=== PATIENT | female | born 2000 | race Caucasian/White ===

== ENCOUNTER 2022-08-21 10:32 | Outpatient (RCR) | payer OTHER, SELFPAY | END 2022-11-19 23:59 | disposition home or self-care (01) | LOC: ANHLAB 10:32 | PROVIDERS: Visit Provider Advanced Practice Midwife | DX: O26.859 Spotting complicating pregnancy, unspecified trimester (principal); Z3A.00 Weeks of gestation of pregnancy not specified | CPT/HCPCS: 36415; 85461; 86850; 86900; 86901 ==

== ENCOUNTER 2022-11-03 09:46 | Observation (INO) | payer OTHER, SELFPAY ==
--- NOTE | 2022-11-03 09:46 | OBADM ---
This patient, Bhavani Head, admitted to the OB room OB Post 116 for observation. Patient/family oriented to hospital policies and general routines including ID bracelet, bed and alarms, visiting hours, pain management, procedures, bathroom and other care routines, personal items, smoking policy, room service/diet, and visiting hours. Patient/Family are encouraged to report perceived risks to care and to ask questions if they do not understand what they are told or what they should do.
[2022-11-03 10:55] VITALS: BMI 30.2
--- NOTE | 2022-11-03 10:55 | PC.NURSE ---
Called Dr. Oneill with pt status. Pt admitted for dizziness, nausea and vomiting. States that she is able to keep water down, but gets dizzy with movement, which causes nausea. Orders received.
[2022-11-03 11:07] VITALS: BP 101/57; PULSE 77
[2022-11-03 11:15] VITALS: BP 100/60; PULSE 85
[2022-11-03 11:39] LABS: Appearance Urine Clear (Clear); Bilirubin Urine Negative (Negative); Blood Urine Negative (Negative); Color Urine Yellow (Yellow); Glucose Urine UA Negative (Negative); Ketones Urine Negative (Negative); Leukocyte Esterase Ur Negative LEU/UL (NEGATIVE); Nitrate Urine Negative (Negative); Protein Urine Negative (Negative); Specific Grav Ur 1.002 (1.001-1.035); Urobilinogen Urine 0.2 mg/dL (<2.0)
[2022-11-03] MEDS: DEXTROSE 5%/0.45% SOD CHL 1,000 ML 999 ML IV CONT (11:39)
[2022-11-03] MEDS: FAMOTIDINE 20 MG/2 ML VIAL IV PUSH (11:40)
[2022-11-03] MEDS: ONDANSETRON INJ 4 MG/2 ML VIAL IV PUSH (11:40)
[2022-11-03 11:41] LABS: Add Urine Microscopic? NO
--- NOTE | 2022-11-03 12:51 | PC.NURSE ---
Called Dr. Oneill. Pt requesting to go home. States that she prefers to not have second bag of fluids. May D/C home.
--- NOTE | 2022-11-10 07:17 | P.PNOB_ITS ---
OB - Triage/Final Diagnosis Visit Information Comments/Additional reasons for admission: I have assessed the risk for this patient, Bhavani Head, and determined that she would benefit from observation care. Evaluation Laboratory results: Laboratory Tests 11/03/22 11:02 Urine Color Yellow Urine Appearance Clear Urine pH 7.0 Ur Specific [place] 1.002 Urine Protein Negative Urine Glucose (UA) Negative Urine Ketones Negative Ur Blood (Man) Negative Urine Nitrate Negative Urine Bilirubin Negative Urine Urobilinogen 0.2 Ur Leukocyte Esterase Negative Final Diagnosis (1) Hyperemesis affecting , antepartum: Code(s): O21.0 - Mild hyperemesis gravidarum Status: Acute
== END 2022-11-03 13:10 | disposition home or self-care (01) ==
PROVIDERS: Admitting Provider Obstetrics & Gynecology; Visit Provider Obstetrics & Gynecology
DX: O21.0 Mild hyperemesis gravidarum (principal); Z3A.19 19 weeks gestation of pregnancy
CPT/HCPCS: 81003; 87086; 96374; 96375; G0378; G0379; J2405

== ENCOUNTER 2022-12-16 17:12 | Emergency (ER) | payer OTHER, SELFPAY ==
[2022-12-16] VITALS (7 sets, daily range): BP systolic 110–121; BP diastolic 78–81; PULSE 89–112; RESP 16–22; TEMP 36.6; O2SAT 98–100
--- NOTE | 2022-12-16 17:13 | ECG_ITS ---
Measurements Intervals [place] Rate: 114 P: 52 [place]: 139 QRS: 21 QRSD: 97 T: 10 QT: 324 QTc: 447 Interpretive Statements SINUS TACHYCARDIA ABNORMAL RHYTHM ECG NO PREVIOUS ECG AVAILABLE FOR COMPARISON Electronically Signed On 12-16-2022 20:36:51 CDT by Liss Howell M.D.
[2022-12-16] MEDS: SODIUM CHLORIDE 0.9% IV 1,000 ML 999 ML IV CONT (19:31)
[2022-12-16 19:34] LABS: Basophils Absolute Auto 0.1 K/mm3 (0.0-0.1); Basophils Percent Auto 0.3 % (0.2-1.2); Eosinophils Absolute Auto 0.1 K/mm3 (0-0.3); Eosinophils Percent Auto 0.3 % (0-4.4); Hematocrit 29.3 % (37.0-47.0); Immature Granulocyte Absolute 0.31 K/mm3 (0.00-0.031); Immature Granulocyte Percent A 1.9 % (0-0.5); Lymphocytes Absolute Auto 1.97 K/mm3 (0.9-3.2); Lymphocytes Percent Auto 12.3 % (18.3-44.2); Mean Corpuscular HGB Conc 34.1 g/dl (32-36); Mean Corpuscular Hemoglobin 29.1 pg (26-34); Mean Corpuscular Volume 85.2 fl (80-100); Monocytes Absolute Auto 1.4 K/mm3 (0.1-0.6); Monocytes Percent Auto 8.8 % (2.6-8.5); Neutrophils Absolute Auto 12.3 K/mm3 (1.3-6.7); Neutrophils Percent Auto 76.4 % (45.5-73.1); Platelet Count Result 287 k/mm3 (150-375); Red Blood Count 3.44 M/mm3 (4.2-5.4); Red Cell Distribution Width 12.8 % (11.5-14.5); White Blood Count 16.1 K/mm3 (4.5-10.0)
[2022-12-16 19:50] LABS: Alanine Aminotransferase 16 U/L (6-35); Albumin Level 3.6 g/dL (3.5-5.1); Alkaline Phosphatase 89 U/L (38-126); Anion Gap 7 mmol/L (8-16); Aspartate Amino Transferase 20 U/L (14-36); Bilirubin,Total 0.3 mg/dL (0.2-1.3); Blood Urea Nitrogen 4 mg/dL (7-17); Calcium 8.4 mg/dL (8.4-10.2); Carbon Dioxide 20 mmol/L (22-30); Chloride 107 mmol/L (98-107); Estimated CRCL calculation 179 ml/min; Estimated Glomerular Filt Rate > 60; Glucose 98 mg/dL (65-110); Magnesium 1.8 mg/dL (1.6-2.3); Potassium 3.2 mmol/L (3.4-5.0); Sodium 134 mmol/L (137-145)
[2022-12-16 20:40] LABS: Appearance Urine Clear (Clear); Bacteria Urine None Seen /hpf; Bilirubin Urine Negative (Negative); Blood Urine Negative (Negative); Color Urine Yellow (Yellow); Glucose Urine UA Negative (Negative); Ketones Urine Negative (Negative); Leukocyte Esterase Ur Trace LEU/UL (Negative); Nitrate Urine Negative (Negative); Non Pathogenic Casts 0-2; Protein Urine Negative (Negative); RBC Urine 0-2 /hpf (0-2); Squamous Epithelial Cell Urine None seen /hpf (Few); WBC Urine 0-5 /hpf; pH Urine 6.5 (5.0-9.0)
[2022-12-16 20:47] LABS: Add Urine Microscopic? YES
--- NOTE | 2022-12-16 20:50 | ED.GENADULT ---
HPI - General Adult General Chief complaint: Arrhythmia/Palpitations Stated complaint: elevated HR/25 weeks Time Seen by Provider: 12/16/22 19:09 History of Present Illness HPI narrative: 22-year-old female that is 25 weeks presented emergency department for evaluation of intermittent tachycardia. Patient states over the course of the day she had some rapid heart rate. Patient reports that her watch captured a heart rate in the 120s and possibly as high as 160. Patient states she did have some flushness and lightheadedness associated with this. Upon arrival to the emergency department patient's heart rate is improved and patient denies any complaints at this time. Patient states she has been eating and drinking well. Patient denies any associated chest pain or shortness of breath. Patient denies any associated nausea vomiting diarrhea vaginal bleeding or vaginal discharge or pain with urination. Patient does have a Holter monitor scheduled for Wednesday. Patient has no prior history of PE DVT atrial fibrillation or SVT. Patient denies any recent excessive alcohol or caffeine intake. Related Data Allergies Allergy/AdvReac Type Severity Reaction Status Date / Time No Known Allergies Allergy Verified 01/27/12 11:04 Review of Systems Review of Systems: All systems reviewed & are unremarkable except as noted in HPI and below PMFSH Family History Family History (Updated 10/19/13 @ 07:13 by DOCTOR UNKNOWN) Grandparent Hypertension Family history of malignant neoplasm Diabetes mellitus Mother Family history of type 2 diabetes mellitus Social History Social History Smoking status: Never smoker Second hand tobacco smoke exposure: No Exam Narrative: APPEARANCE: Well appearing, no pain, no distress, well-nourished. HEAD: normocephalic, atraumatic. EYES: PERRLA/EOMI, conjunctivae clear. NOSE: Normal no drainage EARS:TMS clear with good light reflex. THROAT: Pharynx clear, no exudate. NECK: Supple. No adenopathy, no masses. RESPIRATORY: Airway patent, respirations nonlabored. Clear to auscultation bilaterally, no rales, rhonchi, wheezing. CARDIOVASCULAR: Regular rate and rhythm without murmurs rubs or gallops. ABDOMINAL: Soft, nontender, nondistended, normal bowel sounds MUSCULOSKELETAL: Moves all extremities. Strength/ROM intact, No edema, No calf tenderness. NEURO: Alert. Cranial nerves II through XII intact. Good gait. Good coordination SKIN: Warm, dry. Normal Color Course Course Emergency Course: 22-year-old female present emergency department for evaluation of tachycardia. Upon arrival patient's heart rate was in the 1 teens. Patient heart rate did significantly improve with rehydration. Patient was afebrile but does have a leukocytosis of 16.1, hemoglobin is 10.0 patient denies any active bleeding. Patient's potassium was 3.2 and this was replaced orally. No evidence of urinary tract infection, patient did have trace leuk esterase and a urine culture was ordered. Patient was negative for influenza RSV and for COVID. On reevaluation patient denies any complaints. Patient and family were updated on the results of the work-up and she was encouraged to increase her water intake and to have close follow-up with OB and her primary care physician as scheduled. Patient was also educated on reasons to return to the emergency department. Suspect dehydration versus paroxysmal A-fib versus SVT. The Holter monitor that she has scheduled will help to elucidate this. Patient was stable at time of discharge from the emergency department. Vital Signs Vital signs: Vital Signs Temperature 97.9 F 12/16/22 17:14 Pulse Rate 112 H 12/16/22 17:14 Respiratory Rate 20 12/16/22 17:14 Blood Pressure 118/80 12/16/22 17:14 Pulse Oximetry 100 12/16/22 17:14 Oxygen Delivery Room Air 12/16/22 17:14 Temperature 97.9 F 12/16/22 17:14 Pulse Rate 101 H 12/16/22 20:16 Respiratory Rate
[2022-12-16] MEDS: POTASSIUM CHLORIDE 20 MEQ PACKET (FOR LIQUID) 40 MEQ PO (20:55)
[2022-12-16 21:14] LABS: Influenza A QL RT-PCR Negative (Negative); Influenza B QL RT-PCR Negative (Negative); RSV RNA, RT-PCR Negative (Negative); SARS-CoV-2 RNA PCR Negative (Negative)
== END 2022-12-16 21:04 | disposition home or self-care (01) ==
PROVIDERS: Emergency Provider Emergency Medicine; PCP Advanced Practice Midwife
DX: O99.891 Other specified diseases and conditions complicating pregnancy (principal); R00.2 Palpitations; R00.0 Tachycardia, unspecified; Z20.822 Contact with and (suspected) exposure to COVID-19; Z3A.25 25 weeks gestation of pregnancy
CPT/HCPCS: 36415; 80053; 81001; 83735; 84443; 85025; 87086; 87088; 87147; 87637; 93005; 96360; 99284; A9270; J7030

== ENCOUNTER 2022-12-17 10:48 | Outpatient (CLI) | payer OTHER, SELFPAY ==
--- NOTE | 2022-12-21 15:41 | P.PCNHOL_ITS ---
Holter/Event Monitor Holter/Event Monitor Date of procedure: 12/17/22 Holter/Event Procedure: 24 Hr Holter Monitor Indications: Tachycardia Conclusion: 1. 24 hour holter monitor on 12/17/22. 2. Underlying rhythm is sinus rhythm. HR range 67-160 bpm; average HR 97 bpm. HR at 160 bpm was at 17:08. 3. There are 6 premature supraventricular complexes. No supraventricular tachycardia. 4. No premature ventricular complexes. No ventricular tachycardia. 5. No sinoatrial or atrioventricular blocks. No significant pauses greater than 2 seconds. 6. Patient reports symptoms of heart pump , heart fast, dizziness which de monstrate sinus rhythm, HR range 82-124 bpm.
== END 2022-12-17 10:49 | disposition home or self-care (01) ==
PROVIDERS: Visit Provider Advanced Practice Midwife
DX: R00.0 Tachycardia, unspecified (principal)
CPT/HCPCS: 93225; 93226

== ENCOUNTER 2022-12-22 12:51 | Emergency (ER) | payer OTHER, SELFPAY ==
[2022-12-22 13:03] VITALS: BP 123/73; PULSE 99; RESP 16; TEMP 36.4; O2SAT 100
--- NOTE | 2022-12-22 13:03 | ED.URI ---
HPI - URI/Sore Throat General Chief Complaint: Upper Respiratory Infection Stated Complaint: congested,cough Source: patient and RN notes reviewed History of Present Illness HPI Narrative: 22 yo F, G1P, presents to urgent care with complaints of congestion and states she can hear herself talk b/c her ears are clogged up. Pt reports a MONTE and states her knees and feet ache. Pt states this all started Wednesday evening but yesterday got worse. Pt states she called her OB who told her if she wanted a work note, she would have to be seen. Pt denies any fevers, chills, chest pain, SOB, sore throat, N/V/D. Pt has not taken anything for her symptoms. Related Data Allergies Allergy/AdvReac Type Severity Reaction Status Date / Time No Known Allergies Allergy Verified 01/27/12 11:04 Review of Systems Review of Systems: CONSTITUTIONAL: Denies fever, chills, or sweats. EYES: Denies visual changes, redness, or discharge. ENT: Reports otalgia and pressure in the ears bilaterally, + congestion, CARDIOVASCULAR: Denies chest pain, palpitations, or edema. RESPIRATORY: Denies cough or dyspnea. GASTROINTESTINAL: Denies abdominal pain, nausea, vomiting, or diarrhea. GENITOURINARY: Denies dysuria or hematuria. SKIN: Denies rash or itching. MUSCULOSKELETAL: Bialteral knee and feet aches NEUROLOGIC: headache Pertinent positives per HPI. [facility] Family History Family History (Updated 10/19/13 @ 07:13 by DOCTOR UNKNOWN) Grandparent Hypertension Family history of malignant neoplasm Diabetes mellitus Mother Family history of type 2 diabetes mellitus Social History Social History Smoking status: Never smoker Second hand tobacco smoke exposure: No Comments At the time of my signature, I reviewed and agree with the nursing past medical, surgical, social, and family history. There is no relevant family history pertinent to the patient complaint. Exam Narrative: GENERAL: This is a well-nourished, well-developed patient, in no apparent distress. HEAD: normocephalic, atraumatic. EYES: Sclera clear/white. Vision is grossly intact. EARS: External ears normal, auditory canals clear and without drainage, TMs normal without perforation. Hearing grossly intact. Some cerumen noted in left ear canal. NOSE: External nose normal with no obvious nasal discharge, nares without redness, no rhinorrhea.+ congestion. THROAT: Mucous membranes moist, posterior pharynx clear. NECK: Neck supple, non-tender without lymphadenopathy, masses or thyromegaly. CARDIOVASCULAR: Regular rate and rhythm without murmurs, gallops, or rubs. RESPIRATORY: Clear to auscultation. Breath sounds equal bilaterally. No wheezes, rales, or rhonchi. GASTROINTESTINAL: Abdomen soft, non-tender, nondistended. Bowel sounds are active. No hepato-splenomegaly, or palpable masses. No guarding. SKIN: warm, intact with no suspicious lesions or rash, good texture and turgor. NEURO: awake, alert, and oriented to person, place and time. There were no obvious focal neurologic abnormalities. EXTREMITIES: No clubbing, cyanosis, or edema. No joint tenderness, effusion, or edema noted. BACK: Nontender without deformity or crepitus. No flank tenderness. Course Course Level of Care: Express Care Visit Vital Signs Vital signs: Reviewed MDM - URI/Sore Throat MDM Narrative Medical decision making narrative: Viral illness may last between 7-12days; antibiotic is NOT recommended at this time. Recommend antihistamine such as Benadryl at night time and Claritin/Zyrtec/Brenda during the day. Increase your Vitamin C intake. Steam from hot showers help with congestion. Using nasal spray on both sides twice a day. Also, recommend symptomatic treatment includes: rest, fluids, increase humidity of the air at home with a humidifier in the bedroom. Recommend Acetaminophen or nonsteroidal anti-inflammatory agents(NSAIDs) as directed in the bottle to reduce fever and/pain/headache. Avoid smoking/s
== END 2022-12-22 13:16 | disposition home or self-care (01) ==
PROVIDERS: Emergency Provider Nurse Practitioner Family; PCP Advanced Practice Midwife
DX: J06.9 Acute upper respiratory infection, unspecified (principal)
CPT/HCPCS: 99213; G0463

== ENCOUNTER 2023-01-20 10:45 | Emergency (ER) | payer OTHER, MEDICAID, SELFPAY ==
[2023-01-20 10:51] VITALS: BP 119/76; PULSE 116; RESP 16; TEMP 36.6; O2SAT 99
--- NOTE | 2023-01-20 11:18 | ED.URI ---
HPI - URI/Sore Throat General Chief Complaint: Upper Respiratory Infection Stated Complaint: SINUS CONGESITON Time Seen by Provider: 01/20/23 11:08 Source: patient and RN notes reviewed Mode of arrival: ambulatory Limitations: no limitations History of Present Illness HPI Narrative: Patient presents today with a 3-4 day history of sore throat, left ear pain, cough. States symptoms have been worsening since onset. Currently rates her pain 3/10 and has been taking Tylenol, [id number] ear drops, and Flonase without relief. She is currently 30 weeks . Patient tested herself for COVID-19 2 days ago and it was negative at home. Related Data Home Medications Medication Instructions Recorded Confirmed ondansetron 4 mg disintegrating 4 mg PO PRN PRN Nausea 01/20/23 01/20/23 tablet Allergies Allergy/AdvReac Type Severity Reaction Status Date / Time No Known Allergies Allergy Verified 01/20/23 10:59 Review of Systems Review of Systems: CONSTITUTIONAL: Denies body aches, fever, chills, or sweats. EYES: Denies visual changes, redness, or discharge. ENT: Denies rhinorrhea. + left ear pain, sore throat CARDIOVASCULAR: Denies chest pain, palpitations, or edema. RESPIRATORY: Denies dyspnea.+ cough GASTROINTESTINAL: Denies abdominal pain, nausea, vomiting, or diarrhea. GENITOURINARY: Denies dysuria or hematuria. SKIN: Denies rash, itching, or wounds. MUSCULOSKELETAL: Denies back pain, joint pain, or myalgia. NEUROLOGIC: Denies headache, numbness, tingling, or weakness. PSYCH: Denies depression or anxiety. PMFSH Family History Family History Grandparent Hypertension Family history of malignant neoplasm Diabetes mellitus Mother Family history of type 2 diabetes mellitus Social History Social History Smoking status: Never smoker Second hand tobacco smoke exposure: No Comments At time of signature, I have reviewed and agree with nursing past medical, surgical, social and family history unless otherwise noted. Please see nursing chart for further information. There is no relevant family history pertinent to the presenting complaint Exam Narrative: GENERAL: Well-appearing, well-nourished, and in no acute distress. HEAD: Normocephalic, atraumatic. EYES: EOMI. No redness or drainage. Conjunctivae normal. ENT: Mucous membranes pink and moist. Nares mildly congested. No rhinorrhea. Right TM normal with mild middle ear effusion. Left cerumen impaction occludes TM. Throat mildly erythematous without edema or exudate. Uvula midline. NECK: Normal AROM. Supple. No lymphadenopathy. CHEST: No respiratory distress. Clear to auscultation. HEART: Regular rate and rhythm. No murmur appreciated. Normal peripheral pulses. EXTREMITIES: Normal range of motion. No edema. SKIN: Warm, dry, no rash. Capillary refill normal. Normal skin turgor. NEURO: No focal deficits. Alert and oriented x3. Gait steady. PSYCH: Normal affect. No signs of depression or anxiety. Course Course Level of Care: Express Care Visit Vital Signs Vital signs: Vital Signs Temperature 97.8 F 01/20/23 10:51 Pulse Rate 116 H 01/20/23 10:51 Respiratory Rate 16 01/20/23 10:51 Blood Pressure 119/76 01/20/23 10:51 Pulse Oximetry 99 01/20/23 10:51 Temperature 97.8 F 01/20/23 10:51 Pulse Rate 116 H 01/20/23 10:51 Respiratory Rate 16 01/20/23 10:51 Blood Pressure 119/76 01/20/23 10:51 Pulse Oximetry 99 01/20/23 10:51 Oxygen Delivery Room Air 01/20/23 10:55 Reviewed MDM - URI/Sore Throat MDM Narrative Medical decision making narrative: Patient requesting testing for COVID-19. Rapid strep and influenza negative. Will treat patient with Azithromycin for possible AOM since I am unable to visualize her TM and since she is . Discussed symptomatic treatment with
== END 2023-01-20 11:50 | disposition home or self-care (01) ==
PROVIDERS: Emergency Provider Nurse Practitioner
DX: J06.9 Acute upper respiratory infection, unspecified (principal); Z20.822 Contact with and (suspected) exposure to COVID-19
CPT/HCPCS: 87081; 87426; 87804; 87880; 99213; C9803; G0463

== ENCOUNTER 2023-01-27 11:50 | Outpatient (CLI) | payer OTHER, MEDICAID, SELFPAY ==
--- NOTE | ~2023-01-27 | US_ITS ---
EXAMINATION: US OB BPP wo non-stress DATE: 01/27/2023 13:25 INDICATION: Decreased movement. Evaluate well-being. TECHNIQUE: Real-time pelvic ultrasound was performed. The interpreting radiologist was not present fo r the study. COMPARISON: None. FINDINGS: There is a single living fetus in vertex presentation. The placenta is posterior. cardiac acti vity and movement are demonstrated. heart rate is 153 beats per minute (bpm). Biophysical profile performed by the technologist: breathing (30 sec sustained breathing in 30 minutes): 2 out of 2 movement (3 gross body movements in 30 minutes): 2 out of 2 tone (one episode of ydkajwr-syguetklr-ndsvwcb limb movement): 2 out of 2 Amniotic fluid pocket (2 cm): 2 out of 2 Total score: 8 out of 8 IMPRESSION: 1. Single living intrauterine in vertex presentation with heart rate of 153 bpm. 2. Normal placenta. 3. Biophysical profile 8 out of 8. Reviewed, dictated and finalized at location B. RNATIONAL TRADE MANAGER
[2023-01-27 12:17] VITALS: BP 108/69; PULSE 101
[2023-01-27 12:30] VITALS: BP 111/71; PULSE 102
[2023-01-27 12:32] LABS: Basophils Percent Auto 0.3 % (0.2-1.2); Eosinophils Absolute Auto 0.1 K/mm3 (0-0.3); Eosinophils Percent Auto 0.5 % (0-4.4); Hemoglobin 9.3 g/dL (12.0-15.0); Immature Granulocyte Absolute 0.35 K/mm3 (0.00-0.031); Immature Granulocyte Percent A 2.5 % (0-0.5); Lymphocytes Absolute Auto 1.51 K/mm3 (0.9-3.2); Lymphocytes Percent Auto 10.8 % (18.3-44.2); Mean Corpuscular HGB Conc 33.2 g/dl (32-36); Mean Corpuscular Hemoglobin 27.4 pg (26-34); Mean Corpuscular Volume 82.6 fl (80-100); Mean Platelet Volume 9.9 fl (7.4-10.4); Monocytes Absolute Auto 1.3 K/mm3 (0.1-0.6); Monocytes Percent Auto 9.4 % (2.6-8.5); Neutrophils Absolute Auto 10.7 K/mm3 (1.3-6.7); Neutrophils Percent Auto 76.5 % (45.5-73.1); Platelet Count Result 262 k/mm3 (150-375); Red Blood Count 3.39 M/mm3 (4.2-5.4); Red Cell Distribution Width 12.9 % (11.5-14.5)
[2023-01-27 12:40] LABS: Creatinine Urine 13.8 mg/dL; Total Protein Urine Random 17 mg/dL; Ur Ttl Prot Creatinine Ratio 1.23 mg/mg (0-0.20)
[2023-01-27 12:42] LABS: Alanine Aminotransferase 14 U/L (6-35); Albumin Level 3.5 g/dL (3.5-5.1); Alkaline Phosphatase 101 U/L (38-126); Anion Gap 10 mmol/L (8-16); Aspartate Amino Transferase 22 U/L (14-36); Bilirubin,Total 0.4 mg/dL (0.2-1.3); Blood Urea Nitrogen 4 mg/dL (7-17); Calcium 8.8 mg/dL (8.4-10.2); Carbon Dioxide 21 mmol/L (22-30); Chloride 105 mmol/L (98-107); Estimated Glomerular Filt Rate > 60; Glucose 90 mg/dL (65-110); Potassium 3.7 mmol/L (3.4-5.0); Sodium 136 mmol/L (137-145); Uric Acid 3.1 mg/dL (2.5-7.5)
[2023-01-27 13:44] VITALS: BP 111/71; PULSE 107
== END 2023-01-27 13:48 | disposition home or self-care (01) ==
LOC: ANHOBOP 11:55 → ANHLDR 11:55
PROVIDERS: Visit Provider Advanced Practice Midwife
DX: O13.9 Gestational [pregnancy-induced] hypertension without significant proteinuria, unspecified trimester (principal); O36.8190 Decreased fetal movements, unspecified trimester, not applicable or unspecified; Z3A.00 Weeks of gestation of pregnancy not specified
CPT/HCPCS: 36415; 59025; 76819; 80053; 82570; 84156; 84550; 85025; 99199

== ENCOUNTER 2023-01-28 17:52 | Outpatient (CLI) | payer OTHER, MEDICAID, SELFPAY ==
[2023-01-28 18:02] VITALS: BMI 32.8
[2023-01-28 18:41] LABS: Collection Time Urine 24 HOURS
[2023-01-28 18:45] LABS: Total Volume 24 Hour Urine 2050 ml
[2023-01-28 18:46] LABS: Patient Weight 222 Lbs; Total Volume 24 Hour Urine 2050 ml
[2023-01-28 18:57] LABS: Specific Gravity Ur 1.015
[2023-01-28 19:07] LABS: Creatinine Clearance Urine 158.8 ml/min (75-125); Creatinine Urine 69.4 mg/dL; Total Protein Urine 24 Hr 410 mg/24hr (28-141); Total Protein Urine Random 20 mg/dL
== END 2023-01-28 17:53 | disposition home or self-care (01) ==
LOC: ANHOBOP 17:59
PROVIDERS: Visit Provider Advanced Practice Midwife
DX: O26.899 Other specified pregnancy related conditions, unspecified trimester (principal); R03.0 Elevated blood-pressure reading, without diagnosis of hypertension
CPT/HCPCS: 81050; 82575; 84156

== ENCOUNTER 2023-02-10 08:48 | Outpatient (CLI) | payer OTHER, BC, MEDICAID, SELFPAY ==
--- NOTE | ~2023-02-10 | US_ITS ---
EXAMINATION: US OB limited DATE: 02/10/2023 10:03 INDICATION: Assess amniotic fluid index TECHNIQUE: Real-time ultrasound of the pelvis was performed. The interpreting radiologist was not pre sent for the study. COMPARISON: None. FINDINGS: There is a single living fetus in vertex presentation. The placenta is posterior. heart rate i s 140 beats per minute (bpm). The amniotic fluid index is 13.7 cm, which is normal (5th%-95%: 8.3-24. 5 cm at 33 weeks estimated gestational age). IMPRESSION: 1. Single living fetus in vertex presentation with heart rate of 140 bpm. 2. Normal amniotic fluid index of 13.7 cm. Reviewed, dictated and finalized at location A. SMISSION ENGINEER IMPRESSION: 1. Single living fetus in vertex presentation with heart rate of 140 bpm . 2. Normal amniotic fluid index of 13.7 cm.
[2023-02-10 09:07] VITALS: BP 117/73; PULSE 99
[2023-02-10 09:15] VITALS: BP 117/70; PULSE 107
--- NOTE | 2023-02-10 09:28 | PC.NURSE ---
Rogerio Shelton CNM informed of pt c/o passing her mucous plug last night and having clear wetness in her underwear for about 1 1/2 wks that has required her to change. ROM plus is negative. Informed NST is reactive and no contractions. Order received for MENDEZ due to pt's verbal history.
[2023-02-10 09:37] VITALS: BP 117/70; PULSE 107; RESP 18; TEMP 36.6
--- NOTE | 2023-02-10 10:07 | PC.NURSE ---
Rogerio Shelton CNM informed MENDEZ 13.7 cm. OK to discharge to home.
== END 2023-02-10 10:19 | disposition home or self-care (01) ==
LOC: ANHOBOP 08:53 → ANHOBPP 10:18
PROVIDERS: Visit Provider Advanced Practice Midwife
DX: O41.92X1 Disorder of amniotic fluid and membranes, unspecified, second trimester, fetus 1 (principal); Z3A.33 33 weeks gestation of pregnancy
CPT/HCPCS: 59025; 76815; 84112; 99199

== ENCOUNTER 2023-02-10 15:25 | Outpatient (CLI) | payer OTHER, BC, MEDICAID, SELFPAY ==
[2023-02-10 15:53] VITALS: BP 113/67; PULSE 112
[2023-02-10 16:00] VITALS: BP 128/95; PULSE 108
[2023-02-10 16:30] VITALS: BP 112/74; PULSE 111
[2023-02-10 16:45] VITALS: BP 111/70; PULSE 107
--- NOTE | 2023-02-10 17:13 | PC.NURSE ---
Dr. Leon informed pt was here earlier today for R/O ROM where her ROM plus was negative and MENDEZ was 13.7 cm. Repeat ROM plus now is still negative. FHT's reactive. Pt started feeling some intermittent suprapubic cramping that she describes as lasting 5 secs at a time. Denies increased frequency, pain and burning with urination. Described the spikes noted in uterine assessment area of tracing. SVE closed, thick, firm, and high. Orders received to discharge to home.
[2023-02-10 17:22] VITALS: BP 113/67; PULSE 108
== END 2023-02-10 17:26 | disposition home or self-care (01) ==
LOC: ANHOBOP 15:33 → ANHOBPP 02-16 06:36
PROVIDERS: Visit Provider Advanced Practice Midwife
DX: O26.859 Spotting complicating pregnancy, unspecified trimester (principal); Z3A.00 Weeks of gestation of pregnancy not specified
CPT/HCPCS: 59025; 76815; 84112; 99199

== ENCOUNTER 2023-03-18 06:53 | Observation (INO) | payer MEDICAID, SELFPAY ==
--- NOTE | 2023-03-18 06:53 | OBADM ---
This patient, Bhavani Head, admitted to the OB room Labor/Delivery/Recovery 103 for observation. Patient/family oriented to hospital policies and general routines including ID bracelet, bed and alarms, visiting hours, pain management, procedures, bathroom and other care routines, personal items, smoking policy, room service/diet, and visiting hours. Patient/Family are encouraged to report perceived risks to care and to ask questions if they do not understand what they are told or what they should do.
[2023-03-18 07:15] VITALS: BMI 30.6
--- NOTE | 2023-04-10 12:35 | PM.OBTRLD ---
OB - Triage/Final Diagnosis Visit Information Comments/Additional reasons for admission: I have assessed the risk for this patient, Bhavani Head, and determined that she would benefit from observation care. Final Diagnosis (1) False labor: Code(s): O47.9 - False labor, unspecified Status: Acute
== END 2023-03-18 09:06 | disposition home or self-care (01) ==
PROVIDERS: Admitting Provider Obstetrics & Gynecology; Visit Provider Obstetrics & Gynecology
DX: O47.1 False labor at or after 37 completed weeks of gestation (principal); Z3A.38 38 weeks gestation of pregnancy
CPT/HCPCS: G0378; G0379

== ENCOUNTER 2023-03-22 03:39 | Observation (INO) | payer MEDICAID, SELFPAY ==
--- NOTE | 2023-03-22 05:59 | ADMGEN ---
This patient, Bhavani Head, was admitted to Labor/Delivery/Recovery 109-00. Patient/family oriented to hospital policies and general routines including ID bracelet, bed and alarms, visiting hours, pain management, procedures, bathroom and other care routines, personal items, smoking policy, room service/diet, and visiting hours. Information on how to activate the Rapid Response Team has been discussed. Patient/Family are encouraged to report perceived risks to care and to ask questions if they do not understand what they are told or what they should do.
--- NOTE | 2023-03-22 06:13 | PC.NURSE ---
Discharge instructions discussed with patient. Patient verbalizes understanding. Patient left ambulatory with no distress noted.
== END 2023-03-22 05:55 | disposition home or self-care (01) ==
PROVIDERS: Admitting Provider Obstetrics & Gynecology; Visit Provider Obstetrics & Gynecology
DX: O47.9 False labor, unspecified (principal); Z3A.00 Weeks of gestation of pregnancy not specified
CPT/HCPCS: G0378; G0379

== ENCOUNTER 2023-03-22 10:50 | Inpatient (IN) | payer MEDICAID, SELFPAY ==
[2023-03-22] VITALS (148 sets, daily range): BP systolic 67–125; BP diastolic 28–87; PULSE 70–280; TEMP 36.4–37.1; O2SAT 92–100; BMI 30.3
[2023-03-22 12:04] LABS: Basophils Absolute Auto 0.1 K/mm3 (0.0-0.1); Basophils Percent Auto 0.5 % (0.2-1.2); Eosinophils Percent Auto 0.2 % (0-4.4); Hematocrit 31.5 % (37.0-47.0); Hemoglobin 9.8 g/dL (12.0-15.0); Immature Granulocyte Absolute 0.32 K/mm3 (0.00-0.031); Immature Granulocyte Percent A 1.8 % (0-0.5); Lymphocytes Absolute Auto 1.46 K/mm3 (0.9-3.2); Lymphocytes Percent Auto 8.3 % (18.3-44.2); Mean Corpuscular HGB Conc 31.1 g/dl (32-36); Mean Corpuscular Volume 77.2 fl (80-100); Mean Platelet Volume 10.1 fl (7.4-10.4); Monocytes Absolute Auto 1.3 K/mm3 (0.1-0.6); Monocytes Percent Auto 7.4 % (2.6-8.5); Neutrophils Absolute Auto 14.5 K/mm3 (1.3-6.7); Neutrophils Percent Auto 81.8 % (45.5-73.1); Platelet Count Result 300 k/mm3 (150-375); Red Blood Count 4.08 M/mm3 (4.2-5.4); Red Cell Distribution Width 14.6 % (11.5-14.5); White Blood Count 17.7 K/mm3 (4.5-10.0)
--- NOTE | 2023-03-22 12:16 | LDADM ---
This patient, Bhavani Head, was admitted to Labor/Delivery/Recovery 106 on 03/22/23 at 10:50. Plans for labor, pain management and were discussed with patient. Patient/family oriented to hospital policies and general routines including ID bracelet, bed and alarms, visiting hours, pain management, procedures, bathroom and other care routines, personal items, smoking policy, room service/diet and guest tray routines, security routines, and visiting hours. Patient/Family are encouraged to report perceived risks to care and to ask questions if they do not understand what they are told or what they should do. See OBIX for further documentation.
[2023-03-22] MEDS: miSOPROStol 25 MCG TABLET 50 MCG VAGINAL (12:32)
[2023-03-22] MEDS: ONDANSETRON INJ 4 MG/2 ML VIAL IV PUSH (12:34)
[2023-03-22] MEDS: fentaNYL CITRATE INJ (*CRX) 100 MCG/2 ML VIAL 50 MCG IV PUSH ×3 (12:50→14:59)
[2023-03-22 14:31] LABS: Rapid Plasma Reagin Non-Reactive (NonReactive)
[2023-03-22] MEDS: fentaNYL CITRATE INJ (*CRX) 100 MCG/2 ML VIAL IV PUSH (15:59)
[2023-03-22] MEDS: LACTATED RINGERS 1,000 ML 999 ML IV CONT ×3 (16:52→19:38)
--- NOTE | 2023-03-22 17:01 | WPDANESEPPF ---
Anes - Initial Pre Proc Eval Procedure: labor epidural Date/Time: 03/22/23 17:01 Surgeon: Jacob Leon MD Pre Op Diagnosis: labor pain Pre Op Diagnosis: Contractions/Induction of Labor Patient Data Age: 22 Gender: F Height: 1.75 m Weight: 93.18 kg Last Vital Signs Temp 36.6 C 03/22/23 15:41 Pulse 84 03/22/23 17:01 BP 106/84 03/22/23 17:01 Allergies Allergy/AdvReac Type Severity Reaction Status Date / Time No Known Allergies Allergy Verified 01/20/23 10:59 Home Medications Medication Instructions Recorded Confirmed Type vit no.95-ferrous 1 tablet PO DAILY 02/10/23 03/22/23 History fumarate 28 mg-folic acid 800 mcg tablet () aspirin 81 mg tablet 81 mg PO DAILY 03/01/23 03/22/23 History Laboratory Tests 03/22/23 11:55 WBC 17.7 H K/mm3 (4.5-10.0) RBC 4.08 L M/mm3 (4.2-5.4) Hgb 9.8 L g/dL (12.0-15.0) Hct 31.5 L % (37.0-47.0) MCV 77.2 L fl (80-100) MCH 24.0 L pg (26-34) MCHC 31.1 L g/dl (32-36) RDW 14.6 H % (11.5-14.5) Plt Count 300 k/mm3 (150-375) MPV 10.1 fl (7.4-10.4) Immature Gran % (Auto) 1.8 H % (0-0.5) Neut % (Auto) 81.8 H % (45.5-73.1) Lymph % (Auto) 8.3 L % (18.3-44.2) [place] % (Auto) 7.4 % (2.6-8.5) Eos % (Auto) 0.2 % (0-4.4) Baso % (Auto) 0.5 % (0.2-1.2) Lymph # (Auto) 1.46 K/mm3 (0.9-3.2) [place] # (Auto) 1.3 H K/mm3 (0.1-0.6) Eos # (Auto) 0.0 K/mm3 (0-0.3) Baso # (Auto) 0.1 K/mm3 (0.0-0.1) Abs Immat Gran (auto) 0.32 H K/mm3 (0.00-0.031) Absolute Neuts (auto) 14.5 H K/mm3 (1.3-6.7) Absolute Nucleated RBC 0.0 K/mm3 (0.0-0.012) Nucleated RBC % 0.0 % (0.0-0.2) RPR Non-reactive (NonReactive) Blood Type B Positive Antibody Screen Negative Patient hx anesthesia problems: none Family hx anesthesia problems: none Results Review: All pre-operative results and documents have been reviewed as part of the pre-operative evaluation. PMFSH Family History Family History Grandparent Hypertension Family history of malignant neoplasm Diabetes mellitus Mother Family history of type 2 diabetes mellitus Social History Social History Smoking status: Never smoker Second hand tobacco smoke exposure: No Substance use: never Do You Feel Safe in your Home?: Yes Lack of Transportation: No Lack of Food: Never True Current Housing: I Do Not Have Housing Concerned About Future Housing: No Difficulty Paying Gas/Electric Bills: No Difficulty Paying for Meds: No Currently Unemployed: No Education: High School Diploma/GED Difficulty w/ Childcare or Family Care: No Spiritual care concerns: No Anes - Eval Final PreProcedure Day of Procedure 03/22/23 17:01 Patient weight: obese ASA classification: II Anesthetic plan: proceed Anesthesia type and monitoring: regional epidural and standard monitoring Results Review: All pre-operative results and documents have been reviewed as part of the pre-operative evaluation. Informed Consent: The patient's anesthetic plan and its attendant risks and benefits were discussed with the patient/family/POA. Questions were solicited and answers provided to the satisfaction of the patient/family/POA.
--- NOTE | 2023-03-22 20:20 | PM.IMHP ---
H&P: HPI History of Present Illness Date/Time: 03/22/23 17:45 Chief Complaint: Elective induction of labor Narrative: Patient presents for elective induction of labor. has been complicated by COVID-19 in , with normal serial growths. Denies headaches, vision changes, chest pain, dyspnea, RUQ pain or epigastric pain. Review of Systems Review of Systems: All systems reviewed & are unremarkable except as noted in HPI and below PMFSH Family History Family History Grandparent Hypertension Family history of malignant neoplasm Diabetes mellitus Mother Family history of type 2 diabetes mellitus Social History Social History Smoking status: Never smoker Second hand tobacco smoke exposure: No Substance use: never Do You Feel Safe in your Home?: Yes Lack of Transportation: No Lack of Food: Never True Current Housing: I Do Not Have Housing Concerned About Future Housing: No Difficulty Paying Gas/Electric Bills: No Difficulty Paying for Meds: No Currently Unemployed: No Education: High School Diploma/GED Difficulty w/ Childcare or Family Care: No Spiritual care concerns: No Meds Home Medications and Allergies Home Medications Medication Instructions Recorded Confirmed Type vit no.95-ferrous 1 tablet PO DAILY 02/10/23 03/22/23 History fumarate 28 mg-folic acid 800 mcg tablet () aspirin 81 mg tablet 81 mg PO DAILY 03/01/23 03/22/23 History Allergies Allergy/AdvReac Type Severity Reaction Status Date / Time No Known Allergies Allergy Verified 01/20/23 10:59 Vital Signs Vital Signs - 24 hr 03/22/23 11:16 03/22/23 11:31 03/22/23 11:46 Temperature Pulse Rate 107 H 93 99 Blood Pressure 111/71 111/71 113/71 Pulse Oximetry 03/22/23 12:01 03/22/23 12:31 03/22/23 12:46 Temperature Pulse Rate 95 91 104 H Blood Pressure 113/75 119/78 121/79 Pulse Oximetry 03/22/23 13:01 03/22/23 13:00 03/22/23 13:16 Temperature 98.7 F Pulse Rate 98 89 Blood Pressure 109/72 117/74 Pulse Oximetry 03/22/23 13:31 03/22/23 13:46 03/22/23 14:01 Temperature Pulse Rate 89 88 115 H Blood Pressure 111/74 110/76 108/75 Pulse Oximetry 03/22/23 15:01 03/22/23 15:41 03/22/23 16:01 Temperature 97.9 F Pulse Rate 88 90 Blood Pressure 109/82 110/78 Pulse Oximetry 03/22/23 17:01 03/22/23 17:14 03/22/23 17:16 Temperature Pulse Rate 84 83 Blood Pressure 106/84 125/86 Pulse Oximetry 100 03/22/23 17:19 03/22/23 17:21 03/22/23 17:23 Temperature Pulse Rate 280 H 91 90 Blood Pressure 112/68 112/79 118/77 Pulse Oximetry 100 03/22/23 17:24 03/22/23 17:26 03/22/23 17:28 Temperature Pulse Rate 89 86 Blood Pressure 108/73 114/76 Pulse Oximetry 100 03/22/23 17:29 03/22/23 17:31 03/22/23 17:33 Temperature Pulse Rate 88 87 Blood Pressure 108/73 110/75 Pulse Oximetry 99 03/22/23 17:34 03/22/23 17:36 03/22/23 17:39 Temperature Pulse Rate 96 92 Blood Pressure 110/76 115/82 Pulse Oximetry 99 100 03/22/23 17:41 03/22/23 17:43 03/22/23 17:44 Temperature Pulse Rate 86 90 Blood Pressure 110/79 115/79 Pulse Oximetry 100 03/22/23 17:46 03/22/23 17:49 03/22/23 17:50 Temperature Pulse Rate 86 88 86 Blood Pressure 123/82 87/70 L 105/71 Pulse Oximetry 100 03/22/23 17:54 03/22/23 17:55 03/22/23 17:58 Temperature Pulse Rate 85 86 Blood Pressure 114/87 109/72 Pulse Oximetry 100 03/22/23 17:59 03/22/23 18:00 03/22/23 18:03 Temperature 98.1 F Pulse Rate 89 90 Blood Pressure 110/69 104/75 Pulse Oximetry 100 03/22/23 18:04 03/22/23 18:06 03/22/23 18:08 Temperature Pulse Rate 93 91 Blood Pressure 95/60 L 102/69 Pulse Oximetry 99 03/22/23 18:09 03/22/23 18:11 03/22/23 18:14 Temperature Pulse Rate
--- NOTE | 2023-03-22 20:56 | PM.OBPNLAB ---
Pain Control Date/time seen: 03/22/23 20:56 Pain control: tolerating well and epidural Pelvic Exam Dilation (cm): 6 Effacement (%): 90 station: -2 Amniotic membrane status: Leaking Contractions Monitor mode: Internal Status status: Category ll Comments: intermittent variable decelerations Assessment and Plan Assessment: induction ongoing Comments: IUPC and FSE placed without difficulty. Ok for amnioinfusion if variable decels continue
[2023-03-22] MEDS: OXYTOCIN 30 UNITS/NS 500 ML 30 UNITS/500 ML BAG 6 UNITS IV CONT (22:10)
[2023-03-23] VITALS (39 sets, daily range): BP systolic 89–136; BP diastolic 36–83; PULSE 68–209; RESP 18; TEMP 36.4–37; O2SAT 83–100
--- NOTE | 2023-03-23 01:14 | P.PCNOB_ITS ---
OB - Vaginal Delivery Note Procedure Delivery date: 03/23/23 Events: Elective Induction of Labor Induction method: Per Misoprostol Protocol Delivery augmentation: Rupture of Membranes Delivery monitor: Internal FHT and Internal Uterine Route of delivery: Episiotomy description: None Laceration Description: Perineal - 2nd Degree Delivery repair: vicryl Specimen: No Quantitative Blood Loss (ml): 200 Anesthesia type: Epidural Disposition: Floor Complications: No immediate complications Narrative: See H&P and notes for details on patient's admission and labor. She progressed to complete cervical dilation and at the appropriate time began pushing. With adequate expulsive efforts by the mother, the baby's head was delivered without difficulty. Nuchal cord was present x2 and reduced easily. The baby's left shoulder was anterior and delivered under the pubic symphysis without difficulty. The posterior shoulder and the rest of the baby delivered without difficulty. The umbilical cord was doubly clamped and cut after 60 seconds of delayed cord clamping. Care of the was then assumed by the nursing staff. Mother and infant are at this time in stable condition and doing well. [place] Baby Date of : 03/23/23 Time of : 00:46 Weeks of gestation at delivery: 39 gender: Male presentation: vertex position: Left Occiput Anterior Placenta delivery description: Expressed Cord Vessel Description: 3 Vessels
[2023-03-23] MEDS: OXYTOCIN 30 UNITS/NS 500 ML 30 UNITS/500 ML BAG 125 UNITS IV CONT (01:23)
--- NOTE | 2023-03-23 03:50 | OBPPTRN ---
Patient transferred to post room #292 via w/c. Support person present. Oriented to unit, room, information board, rooming in, admission packet and security measures. Patient verbalizes understanding.
[2023-03-23] MEDS: IBUPROFEN 600 MG TABLET PO ×3 (07:31→21:00)
[2023-03-23] MEDS: MULTIVIT/MIN/PREN/FOL AC/IRON TABLET 1 TAB PO (07:31)
[2023-03-23] MEDS: DOCUSATE SODIUM 100 MG CAPSULE PO ×2 (07:31→15:50)
[2023-03-23] MEDS: POLYSACCHARIDE IRON COMPLEX 150 MG CAPSULE PO ×2 (07:31→15:50)
--- NOTE | 2023-03-23 08:20 | P.PNOB_ITS ---
OB - PN: Subj Subjective Date/time seen: 03/23/23 08:20 Interval history: PPD#1 Doing well, minimal pain Working on latching, pumping in place of feedings right now Normal lochia Normal diet OB - PN: Obj Data Labs 03/22/23 11:55 Labs: Laboratory Results - last 24 hr 03/22/23 11:55 WBC 17.7 H RBC 4.08 L Hgb 9.8 L Hct 31.5 L MCV 77.2 L MCH 24.0 L MCHC 31.1 L RDW 14.6 H Plt Count 300 MPV 10.1 Immature Gran % (Auto) 1.8 H Neut % (Auto) 81.8 H Lymph % (Auto) 8.3 L [place] % (Auto) 7.4 Eos % (Auto) 0.2 Baso % (Auto) 0.5 Lymph # (Auto) 1.46 [place] # (Auto) 1.3 H Eos # (Auto) 0.0 Baso # (Auto) 0.1 Abs Immat Gran (auto) 0.32 H Absolute Neuts (auto) 14.5 H Absolute Nucleated RBC 0.0 Nucleated RBC % 0.0 RPR Non-reactive Blood Type B Positive Antibody Screen Negative OB - PN A/P Plan day: 1 Plan: routine care Time Spent With Patient Time: Total time spent is greater than 50% in coordination of care (as documented) at patient's floor/unit and/or counseling patient: Review of Systems Review of Systems: All systems reviewed & are unremarkable except as noted in HPI and below
--- NOTE | 2023-03-23 11:15 | PC.NURSE ---
0745 Breast pump given per mother request as she is not wanting to put baby to breast at this time, she says that her breasts are large and soft and baby is unable to latch. RN offered to help mother with latching and she declined at this time. Mother was also given a nipple shield earlier this morning but states she does not like it and wishes not to use it. Instructions given on cleaning, care, usage, that there should be no pain, pumping schedule for milk production, collection, and storage of human milk. Patient was assessed for correct placement, flange size, to pump for comfort and nipple stretching/stimulation for adequate milk production every 3 hours (8 times in 24 hours) 1-2 times at night. Parents are encouraged to record the pumping schedule on the feeding sheet.?Mother voiced understanding of the education shared along with mom/baby guide and the pump measurement, flange fit handout for additional resource information. Mother began pumping and was told to call out after she was done pumping. [id number] RN went in to check on mother as she did not call out after using the breast pump. Per mother she only had drops in the flanges and decided to give baby a formula bottle and not put him to breast at this time.
--- NOTE | 2023-03-23 11:23 | PC.NURSE ---
Addendum entered by Hattie Hicks RN 03/23/23 11:33: Offered assistance with pumping as mother was concerned that our pump wasn't producing milk like her pump at home that she used while . Briefly discussed pumps and what we expect for milk production. Offered assistance to burp or check infant's diaper as is showing behaviors that seem to indicate a need and mother wasn't open to assistance saying infant just had a diaper change and three burps. 0940 - Went back into the room related to safe sleep education due to there was two things in the crib with infant ( announcement board and bulb syringe) and I had not educated on safety. Mother is changing a large stool diaper and received the safe sleep education with gratitude. Again reminded mother to call for assistance if needed. Original Note: [id number] Introductions were made, then consulted with patient to assess needs related to . Discussed with mother her?plans to feed?her , the?experience so far, and mother seems reluctant to receive assistance or education at this time. Resources provided for inpatient and outpatient services with the feeding sheet, mom/baby guide and name written on the communication board. Mother voiced understanding of information and will call if there is a request for assistance. Reported to the Primary RN.
[2023-03-24 01:00] VITALS: BP 114/68; PULSE 82; RESP 16; TEMP 36.9; O2SAT 100; O2SAT 99
[2023-03-24 07:29] LABS: Hematocrit 25.1 % (37.0-47.0); Hemoglobin 7.8 g/dL (12.0-15.0)
[2023-03-24 08:15] VITALS: BP 96/60; PULSE 92; RESP 16; TEMP 37.1; O2SAT 99
[2023-03-24] MEDS: MULTIVIT/MIN/PREN/FOL AC/IRON TABLET 1 TAB PO (10:37)
[2023-03-24] MEDS: POLYSACCHARIDE IRON COMPLEX 150 MG CAPSULE PO ×2 (10:38→16:49)
[2023-03-24] MEDS: DOCUSATE SODIUM 100 MG CAPSULE PO ×2 (10:38→16:49)
[2023-03-24] MEDS: IBUPROFEN 600 MG TABLET PO ×2 (10:39→16:50)
--- NOTE | 2023-03-24 11:10 | PM.OBPNVD ---
OB - PN: Subj Subjective Date/time seen: 03/24/23 11:10 Interval history: PPD#1 Doing well, pain controlled Baby not latching well, patient pumping, discussed timing and will follow up in office for visit Normal lochia Normal diet OB - PN: Obj Data Labs 03/24/23 07:06 Labs: Laboratory Results - last 24 hr 03/24/23 07:06 Hgb 7.8 L Hct 25.1 L OB - PN A/P Plan day: 1 Plan: routine care Time Spent With Patient Time: Total time spent is greater than 50% in coordination of care (as documented) at patient's floor/unit and/or counseling patient: Review of Systems Review of Systems: All systems reviewed & are unremarkable except as noted in HPI and below Exam Const: General: comfortable and no acute distress HENMT: Mouth: Yes moist mucous membranes Eyes: General: appearance normal, both eyes and all related structures Resp: Effort & Inspection: normal respiratory effort Cardio: Rate: regular rate GI: GI Palp: Yes Soft to palpation : External Female Exam: normal external appearance Skin: General skin exam: normal color Extrem: General: normal to inspection Psych: Mental Status: mental status grossly normal
--- NOTE | 2023-03-24 13:40 | WPDANLDPN2 ---
Anes-Prog Note L&D Date/Time: 03/24/23 13:40 Comfortable throughout: labor and delivery Neuraxial method: epidural Epidural/Spinal procedure site: clean & non-tender Neuro status: Neuro function grossly intact. Cardiovascular status: normal Respiratory status: normal Airway patency: baseline Mental status: baseline Post-Op hydration status: normal Vital Signs: Last Vital Signs Temp 98.7 F 03/24/23 08:15 Pulse 92 03/24/23 08:15 Resp 16 03/24/23 08:15 BP 96/60 L 03/24/23 08:15 Pulse Ox 99 03/24/23 08:15 O2 Del Method Room Air 03/24/23 10:39 Pain score (VAS): 0/10 Post-procedural complaints: none Patient feedback: Patient satisfied with anesthetic care.
--- NOTE | 2023-03-24 17:41 | PC.NURSE ---
[id number] Purposefully rounded to assess for /pumping needs as it has been reported that mother will pump and feed. Mother is unsure if she wants to breastfeed and will reach out to Dr. Leon's office resource if she decides to do that. Encouraged mother to call during the next pumping session to assess for good fitting breast barton to protect her milk supply and reminded mother there is to be no pain with pumping, , or making milk. Reviewed instructions given on cleaning, care, usage, that there should be no pain, pumping schedule for milk production, collection, and storage of human milk. Patient was assessed for correct placement, flange size, to pump for comfort and nipple stretching/stimulation for adequate milk production every 3 hours (8 times in 24 hours) 1-2 times at night. Mother voiced understanding of the education shared along with mom/baby guide. Father of baby is a cousin of Caryn YANEZ that is following with me today. After Caryn YANEZ talked with patient with BEAU YIN not in the room, she then reported that mother wants to bottle feed at this time.
[2023-03-24] MEDS: ACETAMINOPHEN 325 MG TABLET 650 MG PO (20:50)
[2023-03-25 08:45] VITALS: BP 105/67; PULSE 88; RESP 16; TEMP 36.6; O2SAT 88
[2023-03-25] MEDS: MULTIVIT/MIN/PREN/FOL AC/IRON TABLET 1 TAB PO (08:54)
[2023-03-25] MEDS: POLYSACCHARIDE IRON COMPLEX 150 MG CAPSULE PO (08:54)
[2023-03-25] MEDS: DOCUSATE SODIUM 100 MG CAPSULE PO (08:54)
--- NOTE | 2023-03-25 09:14 | PM.OBPNVD ---
OB - PN: Subj Subjective Date/time seen: 03/25/23 09:14 Interval history: PPD#1 Doing well, pain controlled Baby not latching well, patient pumping, discussed timing and will follow up in office for visit Normal lochia Normal diet Patient comments: no complaints, pain well controlled, incisional pain, tolerating diet and flatus present OB - PN: Obj Data Labs 03/24/23 07:06 OB - PN A/P Plan day: 1 Plan: routine care Comments: No problems, routine care Time Spent With Patient Time: Total time spent is greater than 50% in coordination of care (as documented) at patient's floor/unit and/or counseling patient: Exam Const: General: comfortable, no acute distress and alert Resp: Effort & Inspection: normal respiratory effort Auscultation: no crackles, no rales and no rhonchi Cardio: Rate: regular rate Heart sounds: no click, no murmurs and no rubs GI: Inspection: non-distended GI Palp: No Tenderness to palpation present (GI) Auscultation: normal bowel sounds Other: Incision - CDI Extrem: General: normal to inspection, no pedal edema and no calf tenderness
--- NOTE | 2023-03-25 09:15 | PM.OBDSVD ---
DS: Admitting Diagnosis Discharge Date March 25, 2023 Admitting Diagnosis term OB - DS: Summary OB Procedures : None OB Procedures Intrapartum: Spontaneous Vag Delivery OB Procedures: : None Peripartum Data Laceration Description: Perineal - 2nd Degree Episiotomy description: None Time Spent with Patient Time attestation: Total time spent providing and/or coordinating discharge services: Exam Const: General: comfortable, no acute distress and alert Resp: Effort & Inspection: normal respiratory effort Auscultation: no crackles, no rales and no rhonchi Cardio: Rate: regular rate Heart sounds: no click, no murmurs and no rubs GI: Inspection: non-distended GI Palp: No Tenderness to palpation present (GI) Auscultation: normal bowel sounds Other: Incision - CDI Extrem: General: normal to inspection, no pedal edema and no calf tenderness Discharge Plan Discharge Discharging Clinician: Bryson Tanner Patient Disposition: Home, Self-Care Activity: pelvic rest Diet: regular Patient Instructions: Antibiotic Form Stand Alone Forms: General Discharge Information Follow-up/Referrals: Bryson Tanner MD [Physician] - Discharge Medications: Continued PNV cmb#95-ferrous fumarate-FA [] 28 mg iron- 800 mcg Tablet 1 tablet PO DAILY aspirin 81 mg Tablet 81 mg PO DAILY Date of admission: 03/22/23 10:50 Primary Care Provider: PHYSICIAN,CENTRAL SUPPLY TECH Admitting Provider: Jacob Leon Attending physician on admission: Jacob Leon Condition: Stable
[2023-03-25 10:18] VITALS: O2SAT 98
[2023-03-26 09:19] VITALS: BP 125/84; PULSE 92; RESP 18; TEMP 37.1; O2SAT 100
== END 2023-03-25 11:35 | disposition home or self-care (01) | DRG 560 ==
LOC: ANHLDR 11:14 → ANHOB2 03-23 15:08 → ANHLDR 03-26 08:24 → ANHOB2 03-26 08:24
PROVIDERS: Admitting Provider Obstetrics & Gynecology; Visit Provider Obstetrics & Gynecology
DX: O69.81X0 Labor and delivery complicated by cord around neck, without compression, not applicable or unspecified (principal); Z37.0 Single live birth; Z3A.39 39 weeks gestation of pregnancy; O70.1 Second degree perineal laceration during delivery; O36.8330 Maternal care for abnormalities of the fetal heart rate or rhythm, third trimester, not applicable or unspecified
CPT/HCPCS: 36415; 85014; 85018; 85025; 86592; 86850; 86900; 86901; A9270; G0378; G0379; J2405; J2590; J2795; J3010; J7120

== ENCOUNTER 2023-10-15 11:01 | Outpatient (CLI) | payer OTHER, SELFPAY ==
[2023-10-15 11:15] LABS: Basophils Absolute Auto 0.1 K/mm3 (0.0-0.1); Basophils Percent Auto 0.5 % (0.2-1.2); Eosinophils Absolute Auto 0.1 K/mm3 (0-0.3); Eosinophils Percent Auto 0.7 % (0-4.4); Hematocrit 37.5 % (37.0-47.0); Hemoglobin 11.7 g/dL (12.0-15.0); Immature Granulocyte Absolute 0.04 K/mm3 (0.00-0.031); Immature Granulocyte Percent A 0.4 % (0-0.5); Lymphocytes Absolute Auto 2.27 K/mm3 (0.9-3.2); Lymphocytes Percent Auto 21.3 % (18.3-44.2); Mean Corpuscular HGB Conc 31.2 g/dl (32-36); Mean Corpuscular Hemoglobin 23.5 pg (26-34); Mean Corpuscular Volume 75.5 fl (80-100); Mean Platelet Volume 9.8 fl (7.4-10.4); Monocytes Absolute Auto 1.1 K/mm3 (0.1-0.6); Monocytes Percent Auto 9.8 % (2.6-8.5); Neutrophils Absolute Auto 7.2 K/mm3 (1.3-6.7); Neutrophils Percent Auto 67.3 % (45.5-73.1); Platelet Count Result 391 k/mm3 (150-375); Red Blood Count 4.97 M/mm3 (4.2-5.4); Red Cell Distribution Width 15.9 % (11.5-14.5); White Blood Count 10.7 K/mm3 (4.5-10.0)
[2023-10-15 11:17] LABS: Platelet Estimate Slightly Increased (Adequate); Schistocytes None Seen
[2023-10-15 11:18] LABS: Hypochromasia 1+
[2023-10-15 11:19] LABS: Anisocytosis 1+; Microcytosis 1+ (NORMAL)
[2023-10-15 12:54] LABS: Iron 41 ug/dL (37-170)
[2023-10-15 12:58] LABS: Alanine Aminotransferase 14 U/L (6-35); Albumin Level 4.6 g/dL (3.5-5.1); Alkaline Phosphatase 88 U/L (38-126); Anion Gap 12 mmol/L (4-12); Aspartate Amino Transferase 22 U/L (14-36); Bilirubin,Total 0.3 mg/dL (0.2-1.3); Blood Urea Nitrogen 7 mg/dL (7-17); Calcium 9.5 mg/dL (8.4-10.2); Carbon Dioxide 25 mmol/L (22-30); Chloride 101 mmol/L (98-107); Estimated Glomerular Filt Rate > 60; Glucose 90 mg/dL (65-110); Lactate Dehydrogenase 174 U/L (120-246); Potassium 4.3 mmol/L (3.4-5.0); Sodium 138 mmol/L (137-145)
[2023-10-15 13:07] LABS: Percent Iron Saturation 8 % (20-50)
[2023-10-15 14:01] LABS: Folic Acid 9.6 ng/mL (2.76->20)
[2023-10-20 00:34] LABS: Methylmalonic Acid 138 nmol/L (55-335)
[2023-10-21 14:23] LABS: Soluble Transferrin Receptor 2.46 mg/L (0.76-1.76)
== END 2023-10-15 11:02 | disposition home or self-care (01) ==
LOC: ANHLAB 11:03
PROVIDERS: Nurse Practitioner Family; Visit Provider Internal Medicine Hematology & Oncology
DX: D50.9 Iron deficiency anemia, unspecified (principal)
CPT/HCPCS: 36415; 80053; 82607; 82728; 82746; 83540; 83550; 83615; 83921; 84238; 85025